=== PATIENT | female | born 1970 | race Caucasian/White ===

== ENCOUNTER 2023-10-31 05:59 | Emergency (ER) | payer OTHER, SELFPAY ==
[2023-10-31 06:02] VITALS: BP 150/82
[2023-10-31 06:14] VITALS: BMI 26.6
[2023-10-31] MEDS: DILAUDID 0.5 MG IV ×2 (06:36→09:04)
[2023-10-31] MEDS: NSS 500 IV (06:36)
[2023-10-31] MEDS: ZOFRAN 4 MG IV (06:37)
[2023-10-31] MEDS: TORADOL 15 MG IV (06:37)
[2023-10-31 06:42] VITALS: BP 133/80
--- NOTE | 2023-10-31 06:52 | ED.GENMED ---
History of Present Illness
General
Chief Complaint: Flank Pain
Source: patient and records
Exam Limitations: none
Time Seen by Provider: 10/31/23 06:19
Nursing documentation reviewed up to this point in time: agreed with
Travel History
Have you had any contact with someone who has COVID-19?: No
Do you have any symptoms of coronavirus? Fever > 100 degrees, chills, cough, shortness of breath, sore throat, loss of taste or smell, muscle aches, or headache?: No
History of Present Illness
History of Present Illness:
Patient is a 52-year-old female with a history of kidney stones who presents to the emergency department complaining of right flank pain with nausea. Patient denies fever or chills. Patient denies nasal congestion, sore throat or cough. Patient
denies any chest pain or shortness of breath. Patient admits to some abdominal pain. Patient denies any vomiting or diarrhea. Patient denies any dysuria or hematuria although she went to urgent care 4 days ago and was told she had a kidney stone
and was put on Toradol and Flomax. At that time her urine had large amount of blood. Patient comes in today because the pain is increasing.
Past History
Past History
ED Past Medical History: GERD and Other (Kidney stones, IBS, migraines)
ED Past Surgical History: Negative Cardiac
Social History
Tobacco: Non-smoker
Alcohol: None
Drug: None
Personal:
Living: with family
Employment: Employed
Family History
Family History: Other (Noncontributory)
Review of Systems
Review of Systems
All Other Systems: ROS reviewed and negative except as documented in HPI and ROS
Constitutional: Reports no symptoms
EENT: Reports no symptoms
Respiratory: Reports no symptoms
Cardiac: Reports no symptoms
ABD/GI: Reports abdominal pain and nausea; Denies vomiting, diarrhea or constipated
: Reports flank pain; Denies dysuria, frequency, urgency, bleeding or dark urine
Musculoskeletal: Reports back pain
Skin: Reports no symptoms
Neurological: Reports no symptoms
Hematologic/Lymphatic: Reports no symptoms
Phy Exam
Physical Exam
Physical Exam:
Physical Exam
General: moderate distress, alert and appropriate, well nourished, well hydrated
HENT: Normocephalic, supple with no lymphadenopathy, no thyromegaly
Eyes: Clear sclera, conjuctiva without injection
Heart: Regular rhythm and rate. No S3, S4. No murmur.
Lungs: No respiratory distress, no stridor, lung sounds clear and equal bilaterally
Abdomen: Soft, minimal right-sided tenderness without guarding or rebound, no organomegaly, right CVA tenderness, BS good
Neuro: Alert and oriented x 3, CN II - XII intact, no motor focality, no cerebellar dysfunction
Skin: no rash
Psychiatric: well kept. interactive and cooperative
Extremities: No edema, cyanosis, tenderness, Good and equal peripheral pulses.
Scores
Heart Failure Risk
Heart Failure Risk Score: Not Applicable
Heart Score for Chest Pain Patients
STEMI patient?: Not applicable
Withdrawal Assessment of Alcohol
Withdrawal Assessment Completed?: Not applicable
Course
Orders/Labs/Results
Orders:
Orders
10/31/23 06:25
0.9% Sodium Chloride 500 ml [Nss] 500 ml IV BOLUS
HYDROmorphone [Dilaudid] 0.5 mg IV NOW STA
Ketorolac [Toradol] 15 mg IV NOW STA
Ondansetron Injectable [Zofran] 4 mg IV NOW STA
US Renal With Bladder Urgent
Comment: bladder not full ok, looking at ureteral jets
Reason For Exam: right renal colic
10/31/23 06:28
Complete Blood Count/With Diff Urgent
Comprehensive Metabolic Panel Urgent
Urinalysis Reflex To Culture Urgent
Date Specimen was Collected: 10/31/23
Time Specimen was Collected: 06:14
Urine Microscopic Reflex Cult Urgent
10/31/23 08:55
HYDROmorphone [Dilaudid] 0.5 mg IV NOW STA
10/31/23 08:58
Tamsulosin [Flomax] 0.4 mg PO NOW STA
Abnormal Lab Results
10/31/23
06:28
WBC 16.4 H 10^3/uL
(4.8-10.8)
MCH 31.8 H pg
(27.0-31.0)
Abs Immat Gran (auto) 0.1 H 10^3/uL
(0-0.05)
Absolute Neuts (auto) 12.6 H 10^3/uL
(1.4-6.5)
Absolute Monos (auto) 1.1 H 10^3/uL
(0.1-0.6)
Immature Gran % 0.7 H %
(0-0.5)
Neutrophils % 76.8 H %
(42.2-75.2)
Lymphocytes % 12.4 L %
(20.5-51.1)
Chloride 112 H mmol/L
(98-107)
Carbon Dioxide 17 L mmol/L
(22-30)
Creatinine 1.3 H mg/dL
(0.6-1.0)
Ur Occult Blood Reflex 4+ A
(Negative)
Leukocyte Esterase Rfl Trace A
(Negative)
Urine RBC 16-20 A /HPF
(0-2)
Urine Bacteria (Reflex) Few A
(Negative)
Urine Albumin (Reflex) 1+ A
(Neg - Trace)
10/31/23 06:28
10/31/23 06:28
Vital Signs
Initial and Last Documented VS:
Initial Vital Signs
Temp Pulse Resp BP Pulse Ox
98.9 F 88 22 150/82 98
10/31/23 06:02 10/31/23 06:02 10/31/23 06:02 10/31/23 06:02 10/31/23 06:02
Last Documented Vital Signs
Temp Pulse Resp BP Pulse Ox
98.9 F 85 14 139/77 100
10/31/23 06:02 10/31/23 06:42 10/31/23 06:42 10/31/23 09:09 10/31/23 09:30
*Radiology
Radiology exam reviewed: radiology read reviewed (uvj right stone mild hydro)
*Pulse Oximetry
Patient hypoxic: no
*EKG
Interpreted by ED Provider?: NA
*Traveler Changer Interpretation
Rate: Traveler Changer- N/A
*Critical Care Note
Total Time (30-74mins, 75-104mins- exclusive of procedures): Not Applicable
Update Note
Update Note:
Patient feeling better. Patient has Keralac as well as Flomax at home. Patient was given pain meds.
ED Attending Note
-
Portions of this chart may have been created with voice recognition software.� Occasional wrong word or��sound alike� substitutions may have occurred due to the inherent limitations of voice recognition software.
Discharge Plan
Departure
Patient Disposition: Home (Routine Discharge)
Date of Disposition: 10/31/23
Time of Disposition: 10:54
Patient with high blood pressure during this ER visit?: No
Condition: Good
Covid-19: Not Applicable
Discharge Problem:
Renal colic on right side, Ureterolithiasis
Instructions: Kidney Stones (DC), Renal Colic (DC), Narcotic Pain Medication
Prescriptions:
New
ondansetron 8 mg tablet,disintegrating
8 mg PO TID PRN (Reason: nausea and vomiting) Qty: 20 0RF
oxycodone 5 mg tablet
5 mg PO Q4H PRN (Reason: Pain) Qty: 20 0RF
No Action
topiramate 100 MG tablet
100 mg PO DAILY
sumatriptan succinate [Imitrex] 100 MG tablet
100 mg PO Q8HPRN PRN (Reason: migraines)
naproxen sodium 220 MG capsule
220 mg PO DAILYPRN PRN (Reason: migraine)
ondansetron 4 MG tablet,disintegrating
4 mg PO TIDPRN PRN (Reason: nausea/vomiting) Qty: 8 0RF
ketorolac 10 mg tablet
10 mg PO Q8H 5 Days Qty: 15 0RF
Nurtec ODT 75 mg Tablet,Disintegrating
75 mg PO ONCE PRN (Reason: migraine)
Referrals:
Zuleima Menjivar PA-C [Family Provider] - Follow up in 5-7 days
Interventions
Interventions:
*Risk Screen - Suicide Last Done: 10/31/23 06:02
*General Assessment Last Done: 10/31/23 06:10
*Neglect/Abuse Screening Last Done: 10/31/23 06:02
ED- Fall Risk Assessment Last Done: 10/31/23 06:10
*ED COVID-19 Vaccine History Last Done: 10/31/23 06:10
EA-Yobulr-Muncjbjocu Assessment Last Done: 10/31/23 06:10
ED-Female Genitourinary Assessment Last Done: 10/31/23 06:10
Discharge Date and Time
Print Language: [place]
[2023-10-31 06:58] LABS: % Basophils 0.5 % (0-2); % Eosinophils 3.1 % (0-6); % Immature Granulocytes 0.7 % (0-0.5); % Lymphocytes 12.4 % (20.5-51.1); % Monocytes 6.5 % (1.7-9.3); % Neutrophils 76.8 % (42.2-75.2); Absolute Basophils 0.1 10^3/uL (0-0.2); Absolute Eosinophils 0.5 10^3/uL (0-0.7); Absolute Immature Granulocytes 0.1 10^3/uL (0-0.05); Absolute Monocytes 1.1 10^3/uL (0.1-0.6); Absolute Neutrophils 12.6 10^3/uL (1.4-6.5); Hematocrit 41.5 % (37.0-47.0); Hemoglobin 14.3 g/dL (12.0-16.0); Mean Corp Hgb Conc. 34.5 g/dL (33.0-37.0); Mean Corpuscular Hgb 31.8 pg (27.0-31.0); Mean Corpuscular Volume 92.4 fL (81.0-99.0); Mean Platelet Volume 8.9 fL (7.4-10.4); Nucleated Red Blood Cells % 0 %; Platelet Count 317 10^3/uL (130-400); Red Blood Cell Count 4.49 10^6/uL (4.20-5.40); Red Cell Dist. Width 11.9 % (11.5-14.5); White Blood Cell Count 16.4 10^3/uL (4.8-10.8)
[2023-10-31 07:04] LABS: Urine Albumin 1+ (Neg - Trace); Urine Bilirubin Negative (Negative); Urine Character Clear (Clear); Urine Color Yellow; Urine Glucose Negative (Negative); Urine Ketone Negative (Negative); Urine Leukocyte Trace (Negative); Urine Nitrite Negative (Negative); Urine Occult Blood 4+ (Negative); Urine Urobilinogen Negative (Neg - 1+)
[2023-10-31 07:11] LABS: ALT (SGPT) 12 U/L (0-35); AST (SGOT) 19 U/L (14-36); Albumin 3.9 g/dl (3.5-5.0); Alkaline Phosphatase 84 U/L (38-126); Blood Urea Nitrogen 14 mg/dl (7-17); Calcium 9.2 mg/dl (8.4-10.2); Carbon Dioxide 17 mmol/L (22-30); Chloride 112 mmol/L (98-107); Estimated Creatinine Clearance 42 ml/min; Glucose 99 mg/dl (70-99); Potassium 4.3 mmol/L (3.5-5.1); Sodium 139 mmol/L (135-145); Total Bilirubin 0.3 mg/dl (0.2-1.3); Total Protein 6.6 g/dl (6.3-8.2); eGFR 49.79
[2023-10-31 08:22] LABS: Urine Squamous Cell >30 /LPF (Few)
[2023-10-31 08:23] LABS: Urine Red Blood Cell 16-20 /HPF (0-2)
[2023-10-31 08:24] LABS: Urine Bacteria Few (Negative); Urine Calcium Oxalate Crystals Seen; Urine White Cell 0-2 /HPF (0-5)
[2023-10-31] MEDS: FLOMAX 0.400000000000000022 MG PO (09:03)
[2023-10-31 09:09] VITALS: BP 139/77
[2023-10-31 10:00] VITALS: BP 133/70
[2023-10-31 11:00] VITALS: BP 133/67
[2023-10-31 11:17] VITALS: BP 133/67
== END 2023-10-31 11:19 | disposition home or self-care (01) ==
LOC: EMR 05:59
PROVIDERS: EMERGENCY PHYSICIAN Emergency Medicine; FAMILY PHYSICIAN Physician Assistant Medical
DX: N13.2 Hydronephrosis with renal and ureteral calculous obstruction (principal); N23 Unspecified renal colic; Z87.442 Personal history of urinary calculi
CPT/HCPCS: 99284; 96374; 96375 ×2; 96361 ×2; 96376; 76770; 80053; 81003; 81015; 85025